=== PATIENT | female | born 1950 | race Caucasian/White ===

== ENCOUNTER → 2017-05-22 | Outpatient (CLI) | payer MEDICARE, OTHER ==
[~2017-05-22] MED LIST: ALEVE220 MG PO; ARTHRITIS MED; ASACOL HD800 MG PO; BLOOD PRESSURE MED; CHOLESTEROL MED; CIPROFLOXACIN500 M1 PO; CULTURELLE1 EAC1; CYMBALTA60 MG PO; FLAGYL500 MG PO; GLIPIZIDE XL5 MG PO; GLUCOPHAGE1000 MG PO; LISINOPRIL20 MG PO; LOMOTIL TABLET1 EACH; LOVASTAT10; PROTONIX40 M1; REMERON15 MG PO; SEROQUEL 50 MG50 M1 PO; SYNTHROID100 MCG PO; THYROID MEDICATION; TYGACIL50 MG
[2017-05-22 10:45] VITALS: BP 109/56
[2017-05-22 12:48] VITALS: BP 128/71
--- NOTE | 2017-05-22 13:16 | NUR ---
ARRIVED AMBULATORY. MADE SELF COMFORTABLE IN RECLINER. PORT A CATH ACCESSED WITH OUT DIFFICULTY. GOOD BRISK BLOOD RETURN NOTED AND FLUSHES WITH EASE. DENEIS ADVERSE REACTION TO MULTIPLE INFUSIONS OF SAME AT ANOTHER FACILITY IN [place]. INFUSION COMPLETED AND TOLERATED WELL. PORT FLUSHED AND DEACCESSED. JOIE QUESTIONS OR NEEDS AT DISCHARGE.
== END ==
LOC: M.INFUS 10:21
DX: E83.42 Hypomagnesemia (principal)

== ENCOUNTER → 2017-05-29 | Outpatient (CLI) | payer MEDICARE, OTHER ==
[2017-05-29 10:40] VITALS: BP 128/65
[2017-05-29 12:52] VITALS: BP 135/70
--- NOTE | 2017-05-29 12:56 | NUR ---
ARRIVED AMBULATORY. MADE SELF COMFORTABLE IN RECLINER. PORT A CTH ACCESSED WITH OUT DIFFCIULTY. GOOD BLOOD RETURN NOTED AND FLUSHED WITH EASE. INFUSION COMPLETED AND TOLERATED WELL. PORT FLUSHED AND DEACCESSED. DENIES NEEDS AT DISCHARGE.
== END ==
LOC: M.INFUS 01:21
DX: E83.42 Hypomagnesemia (principal)

== ENCOUNTER → 2017-06-04 | Outpatient (CLI) | payer MEDICARE, OTHER ==
[2017-06-04 11:05] VITALS: BP 133/69
--- NOTE | 2017-06-04 11:30 | NUR ---
Pt ambulated into infusion lab for mag infusion. Pt was a day early on her scheduled appointment but stated that she had a Dr appointment tomorrow and needed to have infusion today. Pt seated self in recliner. Orders pulled and Pt add onto infusion schedule. Port-a-cath accessed at 1045 by Nelida Bey RN with 20g 3/4 in bent needle to right side of chest with brisk blood return noted. Infusion started at 1058 and completed at 1255. Pts port was flushed with 20 ml of NS and then Heprin flushed. Pt ambulated out for discharge at 1305.
== END ==
LOC: M.INFUS 10:30
DX: N39.0 Urinary tract infection, site not specified (principal)

== ENCOUNTER → 2017-11-27 | Outpatient (CLI) | payer MEDICARE, OTHER ==
[2017-11-27 10:26] VITALS: BP 118/61
--- NOTE | 2017-11-27 10:44 | NUR ---
ARRIVED AMBULATORY. MADE SELF COMFORTABLE IN RECLINER. WARM BLANKET GIVEN. PORT A CATH TO RIGHT CHEST NOTED AND FREE FROM SIGN OF INFECTION. PORT A CATH ACCESSED WITH EASE. GOOD BRISK BLOOD RETURN NOTED AND FLUSHED WITH EASE. INFUSION STARTED AND RUNNING WELL. DENIES NEED AT THIS TIME.
[2017-11-27 12:35] VITALS: BP 132/74
--- NOTE | 2017-11-27 12:50 | NUR ---
INFUSION COMPLETED AND TOLERATED WELL. PORT FLUSHED AND DEACCESSED. DENIES QUESTIONS OR NEEDS AT DISCHARGE.
== END ==
LOC: M.INFUS 10:08
DX: N17.9 Acute kidney failure, unspecified (principal); I12.9 Hypertensive chronic kidney disease with stage 1 through stage 4 chronic kidney disease, or unspecified chronic kidney disease; E11.22 Type 2 diabetes mellitus with diabetic chronic kidney disease; N18.4 Chronic kidney disease, stage 4 (severe); D63.1 Anemia in chronic kidney disease; E78.5 Hyperlipidemia, unspecified; E03.9 Hypothyroidism, unspecified; K21.9 Gastro-esophageal reflux disease without esophagitis; M06.9 Rheumatoid arthritis, unspecified; F32.9 Major depressive disorder, single episode, unspecified

== ENCOUNTER → 2018-04-30 | Outpatient (CLI) | payer MEDICARE, OTHER ==
[2018-04-30 10:50] VITALS: BP 120/66
[2018-04-30 13:45] VITALS: BP 122/64
== END ==
LOC: M.INFUS 04:56
DX: E83.42 Hypomagnesemia (principal)

== ENCOUNTER → 2018-05-07 | Outpatient (CLI) | payer MEDICARE, OTHER ==
[2018-05-07 10:15] VITALS: BP 117/56
== END ==
LOC: M.INFUS 04:50
DX: E83.42 Hypomagnesemia (principal)

== ENCOUNTER → 2018-05-20 | Outpatient (CLI) | payer MEDICARE, OTHER ==
[2018-05-20 10:30] VITALS: BP 114/63
[2018-05-20 12:30] VITALS: BP 116/53
== END ==
LOC: M.INFUS 05:43
DX: E83.42 Hypomagnesemia (principal)

== ENCOUNTER → 2018-06-09 | Outpatient (CLI) | payer MEDICARE, OTHER ==
--- NOTE | 2018-06-09 10:32 | NUR ---
PATIENT ARRIVAL AMBULATORY TO OP INFUSION AREA. MADE SELF COMFORTABLE IN RECLINER. CALL LIGHT AND REMOTE GIVEN TO PATIENT. HISTORY AND ORDERS REVIEWED. REASSESSMENT AND VS OBTAINED. RT CHEST PORT ACCESSED UNDER STERILE TECHNIQUE. BRISK BLOOD RETURN OBTAINED FROM PORT. PORT FLUSHES WELL. MAGNESIUM INFUSION STARTED ONCE AVAILABLE FROM PHARMACY.
[2018-06-09 10:36] VITALS: BP 101/67
--- NOTE | 2018-06-09 12:45 | NUR ---
PATIENT TOLERATES INFUSION WELL. DENIES CONCERNS. INFUSION COMPLETED AT 1245. RT CHEST PORT DEACCESSED AND FLUSHED WITH NS 20MLS AND HEPARIN SOLUTION OF 5MLS OF 100UNIT/ML SOLUTION. PATIENT THEN DEPARTS AMBULATORY FOR HOME, WHEN DAUGHTER ARRIVES AT EXIT.
== END ==
LOC: M.INFUS 04:55
DX: E83.42 Hypomagnesemia (principal); C7A.012 Malignant carcinoid tumor of the ileum